=== PATIENT | male | born 1990 | race Caucasian/White ===

== ENCOUNTER 2024-09-02 16:34 | Emergency (ER) | payer BC ==
--- NOTE | 2024-09-02 18:48 | RAD REPORT ---
EXAM: CT brain without contrast HISTORY: Pain;Trauma COMPARISON: None TECHNIQUE: Multiple contiguous axial images were obtained and a CT of the brain without contrast. Sag ittal and coronal reformats were performed. FINDINGS: No evidence of hydrocephalus, intracranial hemorrhage, or extra-axial fluid collection. Cavum septum pellucidum and vergae incidentally noted The brain is normal in morphology. The calvarium is intact. The visualized paranasal sinuses and mastoid air cells are essentially clear . IMPRESSION: No evidence of acute intracranial abnormality. EXAM: CT of the cervical spine without contrast HISTORY: Pain;Trauma COMPARISON: None TECHNIQUE: Multiple contiguous axial images were obtained in a CT of the cervical spine without contr ast. Sagittal and coronal reformats were performed. FINDINGS: The vertebral bodies demonstrate normal height. Straightening of normal cervical lordosis w hich may be positional or secondary to muscle spasm. No evidence of acute fracture or subluxation.. No degenerative changes are present. No prevertebral soft tissue swelling is seen. The posterior facets are well aligned. Normal alignment of the skull base with the cervical spine is seen. The lung apices are unremarkable. IMPRESSION: No evidence of acute osseous abnormality of the cervical spine. Straightening of normal cervical lord osis which may be positional or secondary to muscle spasm.
--- NOTE | 2024-09-02 18:53 | ER ---
Nurse's Notes [facility] Name: Marco Moon Age: 33 yrs Sex: Male : 1990 Arrival Date: 09/02/2024 Time: 16:34 Bed 10 Private MD: Diagnosis: Syncope Near;Unspecified injury of head, initial encounter Presentation: 09/02 17:12 Chief complaint: Patient states: was doing a keg stand and stood up, became dizzy then me1 passed out causing him to fall backwards, hitting his head on the ground. Pain 04/20. Coronavirus screen: Vaccine status: Patient reports receiving the 2nd dose of the covid vaccine. Ebola Screen: No symptoms or risks identified at this time. Initial Sepsis Screen: Does the patient meet any 2 criteria? No. Patient's initial sepsis screen is negative. Does the patient have a suspected source of infection? No. Patient's initial sepsis screen is negative. Risk Assessment: Do you want to hurt yourself or someone else? Patient reports no desire to harm self or others. Onset of symptoms was September 02, 2024 at 15:15. 17:12 Method Of Arrival: Ambulatory [facility] [place] 17:12 Acuity: RONDA 3 me1 Historical: - Allergies: 17:14 No Known Allergies; me1 - PMHx: 17:14 None; me1 - PSHx: 17:14 repair of fracture to arm; me1 - Immunization history:: Adult Immunizations up to date. - Infectious Disease History:: Denies. - Social history:: Smoking status: Patient denies any tobacco usage or history of. - Family history:: not pertinent. Vital Signs: 17:12 BP 129 / 78; Pulse 83; Resp 17; Temp 98.2; Pulse Ox 100% ; Weight 81.65 kg; Height 5 me1 ft. 10 in. ; Pain 04/20; 17:12 Body Mass Index 25.83 (81.65 kg, 177.8 cm) me1 17:12 Pain Scale: Adult me1 Estefany Coma Score: 18:49 Eye Response: spontaneous(4). Motor Response: obeys commands(6). Verbal Response: del oriented(5). Total: 15. 18:51 Eye Response: spontaneous(4). Motor Response: obeys commands(6). Verbal Response: del oriented(5). Total: 15. ED Course: 16:38 Patient arrived in ED. im 16:50 Naveen Serna MD is Attending Physician. del 17:14 Triage completed. me1 17:14 Arm band placed on Patient placed in an internal wait recliner. me1 17:58 CT Head C Spine In Process Unspecified. EDMS Administered Medications: No medications were administered Outcome: 18:53 Discharge ordered by . [facility] 19:01 Patient left the ED. ha1 Signatures: Dispatcher [employer] EDMS Naveen Serna MD MD cha Ayala, Heidy, RN RN ha1 Magdalena Maldonado Michelle, RN RN wa1
--- NOTE | 2024-09-02 18:53 | EDPHYS ---
Physician Documentation [facility] Name: Marco Moon Age: 33 yrs Sex: Male : 1990 Arrival Date: 09/02/2024 Time: 16:34 Bed 10 Private MD: ED Physician Naveen Serna HPI: 09/02 18:49 This 33 yrs old Male presents to ER via Ambulatory with complaints of Head del Injury With LOC-Adult. 18:49 The patient or guardian reports pain, swelling, tenderness. The complaints affect the del left occipital area and left base of the skull. Context of injury: The problem was sustained outdoors, resulted from a fall, from a standing position. Onset: The symptoms/episode began/occurred just prior to arrival. Associated signs and symptoms: Loss of consciousness: This patient did not experience any loss of consciousness. Pertinent positives: headache. Severity of symptoms: At their worst the symptoms were mild, in the emergency department the symptoms are unchanged. The patient has not experienced similar symptoms in the past. Historical: - Allergies: 17:14 No Known Allergies; me1 - PMHx: 17:14 None; me1 - PSHx: 17:14 repair of fracture to arm; me1 - Immunization history:: Adult Immunizations up to date. - Infectious Disease History:: Denies. - Social history:: Smoking status: Patient denies any tobacco usage or history of. - Family history:: not pertinent. ROS: 18:49 Constitutional: Negative for fever, chills, and weight loss, Eyes: Negative for injury, del pain, redness, and discharge, ENT: Negative for injury, pain, and discharge, Neck: Negative for injury, pain, and swelling, Cardiovascular: Negative for chest pain, palpitations, and edema, Respiratory: Negative for shortness of breath, cough, wheezing, and pleuritic chest pain, Abdomen/GI: Negative for abdominal pain, nausea, vomiting, diarrhea, and constipation, Back: Negative for injury and pain, : Negative for injury, bleeding, discharge, and swelling, MS/Extremity: Negative for injury and deformity, Skin: Negative for injury, rash, and discoloration, Psych: Negative for depression, anxiety, suicide ideation, homicidal ideation, and hallucinations, Allergy/Immunology: Negative for hives, rash, and allergies, Endocrine: Negative for neck swelling, polydipsia, polyuria, polyphagia, and marked weight changes, Hematologic/Lymphatic: Negative for swollen nodes, abnormal bleeding, and unusual bruising, 18:49 Neuro: Positive for headache, Exam: 18:49 Constitutional: This is a well developed, well nourished patient who is awake, alert, del and in no acute distress. Eyes: Pupils equal round and reactive to light, extra-ocular motions intact. Lids and lashes normal. Conjunctiva and sclera are non-icteric and not injected. Cornea within normal limits. Periorbital areas with no swelling, redness, or edema. ENT: Nares patent. No nasal discharge, no septal abnormalities noted. Tympanic membranes are normal and external auditory canals are clear. Oropharynx with no redness, swelling, or masses, exudates, or evidence of obstruction, uvula midline. Mucous membranes moist. Neck: Trachea midline, no thyromegaly or masses palpated, and no cervical lymphadenopathy. Supple, full range of motion without nuchal rigidity, or vertebral point tenderness. No Meningismus. Chest/axilla: Normal chest wall appearance and motion. Nontender with no deformity. No lesions are appreciated. Cardiovascular: Regular rate and rhythm with a normal S1 and S2. No gallops, murmurs, or rubs. Normal PMI, no JVD. No pulse deficits. Respiratory: Lungs have equal breath sounds bilaterally, clear to auscultation and percussion. No rales, rhonchi or wheezes noted. No increased work of breathing, no retractions or nasal flaring. Abdomen/GI: Soft, non-tender, with normal bowel sounds. No distension or tympany. No guarding or rebound. No evidence of tenderness throughout. Back: No spinal tenderness. No costovertebral tenderness. Full range of motion. Male : Normal genitalia with no discharge or lesions. Skin: Warm, dry with normal turgor. Normal color with no rashes, no lesions, and no evidence of cellulitis. MS/ Extremity: Pulses equal, no cyanosis. Neurovascular intact. Full, normal range of motion., bilateral aka Neuro: Awake and alert, GCS 15, oriented to person, place, time, and situation. Cranial nerves II-XII grossly intact. Motor strength 5/5 in all extremities. Sensory grossly intact. Cerebellar exam normal. Normal gait. Psych: Awake, alert, with orientation to person, place and time. Behavior, mood, and affect are within normal limits. 18:49 Head/face: Noted is contusion, that is superficial, of the left occipital area and left base of the skull, Vital Signs: 17:12 BP 129 / 78; Pulse 83; Resp 17; Temp 98.2; Pulse Ox 100% ; Weight 81.65 kg; Height 5 me1 ft. 10 in. ; Pain 1/10; 17:12 Body Mass Index 25.83 (81.65 kg, 177.8 cm) me1 17:12 Pain Scale: Adult me1 Ayr Coma Score: 18:49 Eye Response: spontaneous(4). Motor Response: obeys commands(6). Verbal Response: del oriented(5). Total: 15. 18:51 Eye Response: spontaneous(4). Motor Response: obeys commands(6). Verbal Response: del oriented(5). Total: 15. MDM: 16:50 Medical Screening Exam initiated del 18:51 Differential diagnosis: Contusion of Hematoma on Intracranial bleed- Concussion without del LOC. cerebral contusion. Data reviewed: vital signs, nurses notes, radiologic studies, CT scan. Consideration of Admission/Observation Escalation of care including admission/observation considered. I considered the following discharge prescriptions or medication management in the emergency department Medications were administered in the Emergency Department. See MAR. Independent interpretation of the following test(s) in the Emergency Department CT Scan: My interpretation is ct head/ c spine. Care significantly affected by the following chronic conditions: none. 09/02 16:52 Order name: CT Head C Spine del 09/02 16:52 Order name: Ice pack; Complete Time: 18:33 del Administered Medications: No medications were administered Disposition Summary: 09/02/24 18:53 Discharge Ordered Notes: Location: Home del Problem: new del Symptoms: have improved del Condition: Stable del Diagnosis - Syncope Near del - Unspecified injury of head, initial encounter del Followup: del - With: Private Physician - When: 2 - 3 days - Reason: Recheck today's complaints, Continuance of care, Re-evaluation by your physician Discharge Instructions: - Discharge Summary Sheet del - Head Injury, Adult del - Near-Syncope del - Near-Syncope, [id number] del - Head Injury, Adult, [id number] del Forms: - Medication Reconciliation Form del - Antibiotic Education del - Prescription Opioid Use del - Patient Portal Instructions del - Leadership Thank You Letter [facility] Signatures: Dispatcher [employer] Naveen Bowen MD MD cha Eddleman, Michelle, RN RN me1
[2024-09-02 19:18] VITALS: BP 129/78; TEMP 98.2; O2SAT 100
== END 2024-09-02 19:01 | disposition home or self-care (01) ==
LOC: ER 16:34
DX: R55 Syncope and collapse (principal); S00.83XA Contusion of other part of head, initial encounter
CPT/HCPCS: 70450; 72125; 99281